=== PATIENT | male | born 1970 | race Caucasian/White ===

== ENCOUNTER 2020-02-14 13:32 | Emergency (ER) | payer OTHER ==
[~2020-02-14] VITALS: Ht 180.3 cm; Wt 90.7 kg
[2020-02-14 13:46] VITALS: BP 149/82
[2020-02-14] MEDS ORDERED: IBUPROFEN 800 MG TAB PO ONE (14:45)
== END 2020-02-14 16:08 | disposition home or self-care (01) ==
LOC: ER 13:32 → EDBD 13:32 → ER 16:08
DX: S39.012A Strain of muscle, fascia and tendon of lower back, initial encounter (principal); S46.912A Strain of unspecified muscle, fascia and tendon at shoulder and upper arm level, left arm, initial encounter; V43.52XA Car driver injured in collision with other type car in traffic accident, initial encounter; Y93.89 Activity, other specified; Y92.488 Other paved roadways as the place of occurrence of the external cause; Y99.8 Other external cause status
CPT/HCPCS: 72100